=== PATIENT | female | born 1965 | race Caucasian/White ===

== ENCOUNTER → 2018-08-04 | Outpatient (CLI) | payer OTHER | LOC: M.RAD 14:59 | DX: Z12.31 Encounter for screening mammogram for malignant neoplasm of breast (principal) ==

== ENCOUNTER → 2018-08-08 | Outpatient (CLI) | payer OTHER ==
--- NOTE | 2018-08-15 14:12 | 24HR ---
[place] [address] [facility]IT[employer] REPORT Name: MARIO DUMONT Room: [facility]#: [id number] Admission: 08/08/18 Attend Phys: Zee Walker MD Discharge: Date of : 65 Date of Service: 08/15/18 1157 Report #: [id number] THIS REPORT FOR: //name// [facility] Test Date: 2018-08-15 Test Time: 11:57:57 Pat Name: MARIO DUMONT Department: Room: Gender: Filter Operator: : 1965 Requested By: Zee Walker Order Number: [id number] Reading MD: Kian Mcdowell Interpretive Statements 1. sinus rhythm with sinus bradycardia and tachycardia 2. occasional pac with a 5 beat svt noted 3. rare pvc 4. no symptoms in diary Electronically Signed On 08-15-2018 14:12:37 CDT by Kian Mcdowell [email or web address] <ELECTRONICALLY SIGNED> By: Kian Mcdowell MD, [facility] 08/15/18 1412 1157 1157 Kian Mcdowell MD, FACC /EPI
== END ==
LOC: M.RAD 07-16 11:55 → M.CRD 10:54
DX: R00.2 Palpitations (principal)

== ENCOUNTER → 2019-02-02 | Outpatient (CLI) | payer OTHER ==
[2019-02-02 08:16] LABS: ALBUMIN 3.8 g/dL (3.4-5.0); ALKALINE PHOSPHATASE 85 U/L (46-116); ANION GAP 8 mmol/L (7-16); BUN 15 mg/dL (7-18); CALCIUM 9.3 mg/dL (8.5-10.1); CHLORIDE 103 mmol/L (98-107); CHOLESTEROL 223 mg/dL (<200); CO2 29 mmol/L (21-32); GLUCOSE 110 mg/dL (70-99); HDL CHOLESTEROL 51 mg/dL (>40); LDL CHOLESTEROL 146 mg/dL (<100); SGOT 11 U/L (15-37); SGPT 20 U/L (30-65); SODIUM 140 mmol/L (136-145); TC:HDL 4.4 Ratio (Not establshd); TOTAL BILIRUBIN 0.3 mg/dL (<0.1-1.0); TOTAL PROTEIN 7.3 g/dL (6.4-8.2); TRIGLYCERIDE 130 mg/dL (<150); VLDL 26 mg/dL (<40)
[2019-02-02 08:19] LABS: SERUM ASSESSMENT Clear
== END ==
LOC: M.LAB 07:51
PROVIDERS: Family Medicine
DX: E78.2 Mixed hyperlipidemia (principal); R00.2 Palpitations; R73.03 Prediabetes

== ENCOUNTER → 2019-02-19 | Outpatient (CLI) | payer OTHER ==
[2019-02-19 08:46] LABS: % SATURATION 23 % (20-39); IRON 78 ug/dL (50-175)
[2019-02-20 02:07] LABS: GLYCOHEMOGLOBIN (HGB A1C) 5.6 % (4.8-5.6)
== END ==
LOC: M.RAD 07:48
PROVIDERS: Family Medicine
DX: M25.552 Pain in left hip (principal); R73.03 Prediabetes; E61.1 Iron deficiency

== ENCOUNTER → 2019-06-02 | Outpatient (CLI) | payer OTHER | END | disposition home or self-care (01) | LOC: M.MRI 05-28 12:14 → M.RAD 06-01 13:00 | DX: M16.12 Unilateral primary osteoarthritis, left hip (principal); M25.552 Pain in left hip; M25.852 Other specified joint disorders, left hip; M54.5 Low back pain; S73.192A Other sprain of left hip, initial encounter; X58.XXXA Exposure to other specified factors, initial encounter; Y93.89 Activity, other specified; Y92.89 Other specified places as the place of occurrence of the external cause; Y99.8 Other external cause status ==

== ENCOUNTER → 2020-03-28 | Outpatient (CLI) | payer OTHER | LOC: M.CT 10:29 | PROVIDERS: ATTEND Family Medicine | DX: Z13.6 Encounter for screening for cardiovascular disorders (principal) ==

== ENCOUNTER → 2020-03-28 | Outpatient (CLI) | payer OTHER | LOC: M.RAD 10:26 | PROVIDERS: ATTEND Family Medicine | DX: Z12.31 Encounter for screening mammogram for malignant neoplasm of breast (principal) ==

== ENCOUNTER → 2020-06-06 | Outpatient (CLI) | payer OTHER ==
[2020-06-06 09:48] LABS: ABSOLUTE BASOPHILS 0.1 thou/uL (0.0-0.2); ABSOLUTE EOSINOPHILS 0.1 thou/uL (0.0-0.7); ABSOLUTE LYMPHOCYTES 2.6 thou/uL (0.8-5.3); ABSOLUTE MONOCYTES 0.5 thou/uL (0.0-1.2); ABSOLUTE NEUTROPHILS 3.1 thou/uL (1.6-8.1); BASOPHILS 1.3 %; HEMATOCRIT 38.3 % (37.0-47.0); HEMOGLOBIN 12.9 gm/dL (12.0-15.0); MCH 27.7 pg (26.0-34.0); MCHC 33.6 g/dL (28.0-37.0); MCV 82.4 fL (80.0-100.0); MONOCYTES 7.2 %; MPV 7.1 fl. (7.2-11.1); NUCLEATED RBCS 0 /100WBC; PLATELET COUNT* 247 thou/uL (150-400); POLYS 48.5 %; RBC 4.65 mil/uL (4.20-5.00); RDW-CV 13.8 % (10.5-14.5); WBC 6.4 thou/uL (4.0-11.0)
[2020-06-06 10:03] LABS: ALBUMIN 3.7 g/dL (3.4-5.0); ALKALINE PHOSPHATASE 111 U/L (46-116); ANION GAP 8 mmol/L (7-16); BUN 14 mg/dL (7-18); CALCIUM 9.3 mg/dL (8.5-10.1); CHLORIDE 107 mmol/L (98-107); CHOLESTEROL 205 mg/dL (<200); CO2 29 mmol/L (21-32); CREATININE 0.9 mg/dL (0.6-1.3); GLUCOSE 104 mg/dL (70-99); HDL CHOLESTEROL 58 mg/dL (>40); LDL CHOLESTEROL 130 mg/dL (<100); POTASSIUM 4.5 mmol/L (3.5-5.1); SGOT 14 U/L (15-37); SGPT 20 U/L (30-65); SODIUM 144 mmol/L (136-145); TC:HDL 3.5 Ratio (Not establshd); TOTAL BILIRUBIN 0.3 mg/dL (<0.1-1.0); TOTAL PROTEIN 7.4 g/dL (6.4-8.2); TRIGLYCERIDE 89 mg/dL (<150); VLDL 18 mg/dL (<40)
[2020-06-06 10:15] LABS: SERUM ASSESSMENT Clear
[2020-06-06 10:19] LABS: % SATURATION 18 % (20-39); IRON 69 ug/dL (50-175)
[2020-06-07 02:06] LABS: GLYCOHEMOGLOBIN (HGB A1C) 5.3 % (4.8-5.6)
== END ==
LOC: M.LAB 09:25
PROVIDERS: ATTEND Family Medicine
DX: E61.1 Iron deficiency (principal); E78.2 Mixed hyperlipidemia; R73.03 Prediabetes; Z00.00 Encounter for general adult medical examination without abnormal findings